=== PATIENT | male | born 1975 | race Caucasian/White ===

== ENCOUNTER 2024-07-02 20:02 | Outpatient (OUT) | payer OTHER, SELFPAY | END 2024-07-02 20:03 | disposition home or self-care (01) | LOC: SLEEP 20:02 | DX: G47.33 Obstructive sleep apnea (adult) (pediatric) (principal); F51.01 Primary insomnia | CPT/HCPCS: 95810 ==

== ENCOUNTER 2024-11-19 15:24 | Outpatient (OUT) | payer BC, MEDICAID, SELFPAY ==
--- OUTSIDE RECORDS SUMMARY | 2010-02-22 12:26 | XMS_ITS | Continuity of Care Document ---
Author Organization [facility] Address [address] [place] [address] [place] [address] Phone Care Team Providers Care Science Instructor Name Role Phone Isela Pantoja MD Unavailab le Allergies, Adverse Reactions, Alerts Substance Reaction Status Criticality Penicillins Hives Active No Information Medications Medication Instructions Dosage Effective Dates (start - stop) Status Comments Zoloft 100 mg Tab Take one tablet by mouth daily - Active Zoloft 50 mg Tab Take one tablet by mouth daily - Active PHENERGAN 25MGTABLET 1 BID prn nausea - Active Zithromax 250 mg Tab -z-pack, take as directed. - Active Effexor XR 75 mg 24 hr Cap Take two tablet by mouth daily - Active Lunesta 2 mg Tab As directed - Active Effexor XR 150 mg 24 hr Cap Take one tablet by mouth daily - Active Imitrex 100 mg Tab - - Active LUNESTA 3 mg Take one tablet by mouth daily - Active Procedures Procedure Date Office/outpatient visit,est, mod 2006 Office/outpatient visit,est, mod 2006 Office/outpatient visit,est, mod 2005 Office/outpatient visit,est, mod 2005 Office/outpatient visit,est, mod 2005 Office/outpatient visit,est, mod 2004 Office/outpatient visit,new, mod 2004 Advance Directives Directive Yes / No Effective Date File Name No Information Encounters Encounter Description Practice Location Reason(s) For Visit Diagnoses Date Provider Providers Copied on Encounter [facility], [address] [place] [address] [address], [place], [place], [id number] , tel: [phone] [facility] No Information 4-201 0 Kit Weiss. [address], [place], [place], [id number], [place]. tel:[phone] [facility], [address] [place] [address] [address], [place], [place], [id number] , [place] tel: [phone] [facility] No Information 5-200 8 Kit Weiss. [address], [place], [place], [id number], [place]. tel:[phone] Office/outpa tient visit,est, [facility], [address] [place] [address] [address], [place], [place], [address] , tel: [phone] Rand[facility] Gomez [facility] FU (chief complaint) CHEST PAIN NOSDEPRESSIONANXI ETY STATE NOSALCOHOL ABUSE-EPISODICLAT ERAL EPICONDYLITIS 4-200 7 Kit Weiss. [address], [place], [place], [id number], [place]. tel:[phone] Referring Provider: Isela Kraft, [address], [place], [address] . tel:[phone] [facility], [address] [place] [address] [address], [place], [place], [id number] , [place] tel:[phone] [facility] No Information 8-200 7 Kit Weiss. [address], [place], [place], [id number], [place]. tel:[phone] [facility], [address] [place] [address] [address], [place], [place], [address] , [place] tel:[phone] [facility] depression (chief complaint)c hest pain (chief complaint) No Information 0 4-200 7 Kit Weiss. [address], [place], [place], [address], . tel:[phone] Referring Provider: Isela Kraft, [address], [place], [address] . tel:[phone] Office/outpa tient visit,[facility], [address] [place] [address] [address], [place], [place], [address] , tel:[phone] [facility] physical exam (chief complaint)p ain (chief complaint) No Information 2-200 7 Kit Weiss. [address], [place], [place], [address], . tel:[phone] Referring Provider: Isela Kraft, [address], [place], [address] . tel:[phone] [facility], [address] [place] [address] [address], [place], [place], [address] , tel:[phone] [facility] sinus congestion (chief complaint) No Information 3200 7 Kit Weiss. [address], [place], [place], [address], . tel:[phone] Referring Provider: Isela Kraft, [address], [place], [address] . tel:[phone] Office/outpa tient visit,[facility], [address] [place] [address] [address], [place], [place], [address] , tel:[phone] Rand[facility] depression (chief complaint) DEPRESSION 7-200 6 Kit Weiss. [address], [place], [place], [address], . tel:[phone] Referring Provider: Isela Kraft, [address], [place], [address] . tel:[phone] Office/outpa tient visit,[facility], [employer] [facility], [address] [place] [address] [address], [place], [place], [address] , [place] tel: [phone] [facility] check up (chief complaint) ANXIETY STATE NOSINSOMNIA NEC 200 6 Horrigdaron Weiss. [facility] [address], [place], [address], [place]. tel:[phone] Referring Provider: Isela Kraft, [address], [place], [address] . tel:[phone] Office/outpa tient visit,[facility], [facility], [address] [place] [address] [address], [place], [place], [address] , [place] tel: [phone] Randee Gomez [facility] depression (chief complaint)h eadache (chief complaint) NE[facility]OTIC [facility] M[facility] STD 200 6 Horharman Weiss. [facility] [address], [place], [place], [address], [place]. tel:[phone] Referring Provider: Isela Kraft, [address], [place], [address] . tel:[phone] [facility], [address] [place] [address] [address], [place], [address] , [place] tel: [phone] [facility] No Information 5 Kit Weiss. [facility] [address], [place], [place], [address], [place]. tel:[phone] Office/outpa tient visit,[facility], [facility], [address] [place] [address] [address], [place], [address] , [place] tel: [phone] [facility] depression (chief complaint)s leep (chief complaint) No Information 2200 [address] Kit Weiss. [address], [place], [place], [address], . tel:[phone] Referring Provider: Isela Kraft, [address], [place], [address] . tel:[phone] Office/outpa tient visit,[facility], [address] [facility] [address], [place], [place], [address] , tel:[phone] [facility] dizziness (chief complaint)d epression (chief complaint)h /o drug use (chief complaint) No Information 2200 [address] Kit Weiss. [address], [place], [place], [address], [place]. tel:[phone] Referring Provider: Isela Kraft, [address], [place], [address] . tel:[phone] Family History Family Member Type Diagnosis Age At Onset Mother Problem (finding) hypothyroidism Payers Payer name Insurance type Covered libertarian ID Authoriza tion(s) Data Merge-Verify Information CI [id number] Social History Type Description Quantity Date Captured Comments Sex Male Smoking Status No Information Sexual Orientation Lesbian, gabriel or homosexual Chief Complaint And Reason For Visit No Information Reason For Referral Reason For Referral No Information History Of Present Illness Encounter Date Complaint History Of Prese nt Illness No Information Functional Status Date Functional Assessmen t No Information Instructions Date Instruction Additional Infor mation Prescribe medications Related to DEPRESSION Renew medications Related to DEP RESSION Review medications Related to DE PRESSION Review medication side effects R elated to DEPRESSION Order labs/studies Related to DE PRESSION Go to ER if symptoms persist or worsen Related to DEPRESSION Call if symptoms persist Related to DEPRESSION Assessments Type Assessment Date No Information Patient Care Teams Name Effective Dates (start - stop) Status Members No Information
--- OUTSIDE RECORDS SUMMARY | 2024-07-31 06:00 | XMS_ITS ---
Author Organization [facility] vices Address [address], [place] [address] Care Team Providers Care Wide Area Network Engineer Name Role Phone Natalie Ward Primary Care Provider [phone] REASON FOR VISIT 4 week Insomnia, Chronic pain Social History Sex Assigned At : Social History Observation Description Sex Assigned At Male Encounters Encounter Location Date Provider Diagnosis Main [address], [place] [id number] 07/31/2024 Natalie Ward Plan Of Treatment No Information Progress Notes * Haile PUENTESDOB: 4 (49 yo M)Acc No.[id number]:07/31/2024 Medical Note Patient: Haile TANG Provider: Ida Ward MD :1975 A ge:48 Y S ex:Male Date:07/31/2024 Address:[address] [facility] Subjective: * Chief Complaints: * 1 . 4 week Insomnia, Chronic pain. * Medical History: Objective: * Vitals: Assessment: Plan: * Treatment: * Billing Information: * Visit Code: * Procedure Codes: * Electronic signature of Adriana Ward MD on 11/19/2024 at 03:29 PM EDT Sign off status: Pending * Provider: Ida Ward MD Date: 07/31/2024 Generated for Jalen chilel/Caty/eTransmitting on: 0 11/19/2024 03:29 PM EDT
--- OUTSIDE RECORDS SUMMARY | 2024-09-04 06:00 | XMS_ITS ---
Author Organization [facility]ices Address [address], [place] [address] Care Team Providers Care 411 Directory Assistance Operator Name Role Phone Natalie Ward Primary Care Provider [phone] Olvin Kim Unavailable [phone] REASON FOR VISIT 3 month Insomnia, Chronic pain Social History Sex Assigned At : Social History Observation Description Sex Assigned At Male Encounters Encounter Location Date Provider Diagnosis Main [address] [place] [id number] 09/04/2024 Olvin Adams Plan Of Treatment No Information Progress Notes * Haile PUENTESDOB: 4 (49 yo M)Acc No.[id number]:09/04/2024 Medical Note Patient: Haile TANG Provider: Rafa Adams :1975 A ge:48 Y S ex:Male Date:09/04/2024 Address:[address] [facility] Pcp:Natalie Ward Subjective: * Chief Complaints: * 1 . 3 month Insomnia, Chronic pain. * Medical History: Objective: * Vitals: Assessment: Plan: * Treatment: * Billing Information: * Visit Code: * Procedure Codes: * Electronic signature of HARJINDER Avelar on 11/19/2024 at 03:29 PM EDT Sign off status: Pending * Provider: Rafa Adams Date: 0 09/04/2024 Generated for Maribeli ranjana/Caty/eTransmitting on: 0 11/19/2024 03:29 PM EDT
--- OUTSIDE RECORDS SUMMARY | 2024-09-15 12:45 | XMS_ITS ---
Author Organization [facility] vices Address [address], [place] [address] Care Team Providers Care Communication Manager Name Role Phone Natalie Ward Primary Care Provider REASON FOR VISIT Insomnia and Chronic Pain Social History Sex Assigned At : Social History Observation Description Sex Assigned At Male Encounters Encounter Location Date Provider Diagnosis Main [address], [place] [id number] 09/15/2024 Natalie Ward Plan Of Treatment No Information Progress Notes * PUENTESCiciurvashipatricaDOB: 4 (49 yo M)Acc No.[id number]:09/15/2024 Medical Note Patient: Haile TANG Provider: Ida Ward MD :1975 A ge:48 Y S ex:Male Date:09/15/2024 Address:[address] [facility] Subjective: * Chief Complaints: * 1 . Insomnia and Chronic Pain. * Medical History: Objective: * Vitals: Assessment: Plan: * Treatment: * Billing Information: * Visit Code: * Procedure Codes: * Electronic signature of Adriana Ward MD on 11/19/2024 at 03:29 PM EDT Sign off status: Pending * Provider: Ida Ward MD Date: 09/15/2024 Generated for Printi ranjana/Caty/eTransmitting on: 11/19/2024 03:29 PM EDT
--- OUTSIDE RECORDS SUMMARY | 2024-11-19 15:29 | XMS_ITS | Clinical Summary ---
Author Organization [facility] Address [address] [facility] [address] [facility], [address] [place] [address] Care Team Providers Care Wash House Supervisor Name Role Phone Anisha Velasquez APRN - WASH HOUSE SUPERVISOR Primary Care Provider Allergies Active Allergy Reactions Criticality Noted Date Comments Penicillins High 04/11/2024 Medications diclofenac (VOLTAREN) 75 MG EC tabletIndications:P rimary osteoarthritis of both knees Take 1 tablet by mouth 2 times daily (with meals) 180 tablet 5 Active QUEtiapine (SEROQUEL) 100 MG tabletIndications:B ipolar 1 disorder (HCC) Take 1 tablet by mouth nightly 90 tablet 5 Active Social History Tobacco Use Types Packs/Day Years Used Date Smoking Tobacco: Never Assessed [facility] Utilities Answer Date Recorded In the past 12 months has e Anim[employer], gas, oil, or water PacketSled threatened to shut off services in your home? No 04/11/2024 PHQ-2 Answer Date Recorded PHQ-9 Total Score 19 04/11/2024 Hunger Vital Sign Answer Date Recorded Within the past 12 months, y ou worried that your food would run out before you got the money to buy more. Never true 04/11/19 25 Within the past 12 months, t he food you bought just didn't last and you didn't have money to get more. Never true 04/11/2024 PRAPARE - Transportation Answer Date Re corded In the past 12 months, has l ack of transportation kept you from medical appointments or from getting medications? No 03/14 In the past 12 months, has l ack of transportation kept you from meetings, work, or from getting things needed for daily living? No 04/11/2024 Housing Stability Vital Sign Answer Sundar e Recorded In the last 12 months, was t here a time when you were not able to pay the mortgage or rent on time? No 04/11/2024 In the past 12 months, how m any times have you moved where you were living? 0 04/11/2024 At any time in the past 12 m [facility], were you homeless or living in a detention (including now)? No 04/11/2024 Food Insecurity Answer Date Recorded Within the past 12 months, y ou worried that your food would run out before you got the money to buy more. 1 04/11/2024 Within the past 12 months, t he food you bought just didn't last and you didn't have money to get more. 1 04/11/2024 Sex and Gender Information Value Date Recorded Sex Assigned at Not on file Legal Sex Male 4:23 PM EST Gender Identity Not on file Sexual Orientation Not on file Last Filed Vital Signs Vital Sign Reading Time Taken Comments Blood Pressure 118/72 04/11/2024 9:11 AM EST Pulse 85 04/11/2024 9:11 AM EST Temperature 36.3 C (97.3 F) 04/11/2024 9:11 AM EST Respiratory Rate 16 04/11/2024 9:11 AM EST Oxygen Saturation 97% 04/11/2024 9:11 AM EST Inhaled Oxygen Concentration - - Weight 123.4 kg (272 lb) 04/11/2024 9:11 AM EST Height 180.3 cm (5' 11 ) 04/11/2024 9:11 AM EST Body Mass Index 37.94 04/11/2024 9:11 AM EST Plan of Treatment Health Maintenance Due Date Last Done Comments HIV screen 1988 Hepatitis C screen 11/18/1991 DTaP/Tdap/Td vaccine (1 - Tdap) 1992 Hepatitis B vaccine (1 of 3 - 19+ 3-dose series) 1992 Diabetes screen 2008 Lipids 2013 Colonoscopy 2018 Colorectal Cancer Screen 2018 FIT/FOBT: Average risk 2018 Fecal-DNA (Cologuard): Average risk 2018 Sigmoidoscopy/CT colonography 2018 COVID-19 Vaccine (1 - 2023-2 5 season) 2023 Pneumococcal 50+ years Vaccine (1 of 1 - PCV) 11/18/2023 Shingles vaccine (1 of 2) 11/18/2023 Flu vaccine (#1) 10/10/2024 Depression Monitoring 04/11/2025 04/11/2024 , 04/11/2024 Depression Screen Discontinued 04/11/2024, 04/11/2024 Hepatitis A vaccine Aged Out No longe r eligible based on patient's age to complete this topic Hib vaccine Aged Out No longer eligi ble based on patient's age to complete this topic Meningococcal (ACWY) vaccine Aged Out No longer eligible based on patient's age to complete this topic Meningococcal B vaccine Aged Out No l onger eligible based on patient's age to complete this topic Polio vaccine Aged Out No longer elig ible based on patient's age to complete this topic Insurance Care Teams Wash House Supervisor Relationship Specialty Start Date End Date Anisha Velasquez, FURNITURE SALESPERSON - WASH HOUSE SUPERVISOR [address] [place] [address] PCP - General Family Medicine 04/11/24
--- OUTSIDE RECORDS SUMMARY | 2024-11-19 15:29 | XMS_ITS | Clinical Summary ---
Author Organization [facility] Address [address] [place] [address] Care Team Providers Care Principal Archaeologist Name Role Phone Briseida Lane NP Primary Care Provider Un available Source Comments PLEASE NOTE, if this patient is a minor, it may be UNLAWFUL to discuss sensitive information that is contained in these records (such as FAMILY PLANNING, MENTAL HEALTH or SUBSTANCE ABUSE) with the minor patient's parent or other person without the patient's specific authorization.[facility] Allergies Active Allergy Reactions Criticality Noted Date Comments Penicillins Swelling High 11/12/2015 Medications cyclobenzaprine (FLEXERIL) 5 mg tabletIndicatio ns:Chronic bilateral low back pain without sciatica Take 1 Tab by mouth 2 (two) times daily as needed for muscle spasms. 60 Tab 2 11/12/2015 Active eszopiclone (LUNESTA) 3 mg tabIndications: Primary insomnia Take 1 Tab by mouth nightly at bedtime. 30 Tab 0 12/02/2015 Active atomoxetine (STRATTERA) 10 mg capsuleIndicati ons:Anxiety Take 1 Cap by mouth once daily. 30 Cap 2 12/10/2015 Active Active Problems Problem Noted Date Diagnosed Date Furuncle 08/18/2015 Anxiety 07/14/2015 Chronic low back pain 07/14/2015 Insomnia 07/14/2015 Social History Tobacco Use Types Packs/Day Years Used Date Smoking Tobacco: Never Smokeless Tobacco: Never Alcohol Use Standard Drinks/Week Comments No 0 (1 standard drink = 0.6 oz pur e alcohol) Social Connections Answer Date Recorded Social Connections and Isolation 0 11/03/2018 Financial Resource Strain Answer Date R ecorded Financial Resource Strain 0 2018 Stress Answer Date Recorded Stress 0 11/03/2018 Physical Activity Answer Date Recorded Physical Activity 0 11/03/2018 Food Insecurity Answer Date Recorded Food 0 11/03/2018 Transportation Needs Answer Date Record ed Transportation 0 11/03/2018 Housing Stability Answer Date Recorded Housing 0 11/03/2018 Safety and Environment Answer Date Dg rded Safety 0 11/03/2018 Utilities Answer Date Recorded Utilities 0 11/03/2018 Employment Answer Date Recorded Employment 0 11/03/2018 Sex and Gender Information Value Date Recorded Sex Assigned at Not on file Legal Sex Male 7:50 AM PDT Gender Identity Not on file Sexual Orientation Not on file Last Filed Vital Signs Vital Sign Reading Time Taken Comments Blood Pressure 114/67 12/10/2015 9:21 AM EDT Pulse 65 12/10/2015 9:21 AM EDT Temperature 36.1 C (97 F) 12/10/2015 9:21 AM EDT Respiratory Rate 22 12/10/2015 9:21 AM EDT Oxygen Saturation - - Inhaled Oxygen Concentration - - Weight 99.2 kg (218 lb 9.6 oz) 12/10/2015 9:21 A M EDT Height 179 cm (5' 10.47 ) 12/10/2015 9:21 AM EDT Body Mass Index 30.95 12/10/2015 9:21 AM EDT Plan of Treatment Not on file Insurance [employer] [employer] Care Teams Principal Archaeologist Relationship Specialty Start Date End Date Briseida Lane NP PCP - General Family Medicine, OUTCOMES MANAGER 06/16/15
== END 2024-11-19 15:25 | disposition home or self-care (01) ==
PROVIDERS: PCP Nurse Practitioner Family; Visit Provider Nurse Practitioner Family
DX: N52.9 Male erectile dysfunction, unspecified (principal)
CPT/HCPCS: 36415; 84402; 84403

== ENCOUNTER 2025-02-23 16:02 | Outpatient (OUT) | payer BC, MEDICAID, SELFPAY ==
[2025-02-23 16:35] LABS: Hematocrit 45.6 % (42.0-54.0); Hemoglobin 15.9 g/dL (14.0-18.0); Immature Granulocytes Abs Auto 0.02 10^3/uL (0.00-0.03); Immature Granulocytes Pct Auto 0.2 % (0.0-0.5); Lymphocytes Absolute Auto 2.0 10^3/uL (1.2-3.8); Mean Corpuscular HGB Conc 34.9 g/dL (29.9-35.2); Mean Corpuscular Hemoglobin 30.2 pg (25.9-34.0); Mean Corpuscular Volume 86.5 fL (80.0-94.0); Platelet Count 235 10^3/uL (150-450); Red Blood Count 5.27 10^6/uL (4.70-6.10); White Blood Count 9.5 10^3/uL (4.0-11.0)
[2025-02-23 16:51] LABS: Alanine Aminotransferase 40 U/L (16-63); Albumin Globulin Ratio 1.0; Albumin Level 3.5 g/dL (3.4-5.0); Alkaline Phosphatase 140 U/L (46-116); Anion Gap 11.6; Aspartate Amino Transferase 19 U/L (15-37); Blood Urea Nitrogen 9.0 mg/dL (7.0-18.0); Calcium 8.8 mg/dL (8.5-10.1); Carbon Dioxide 29.2 mmol/L (21.0-32.0); Chloride 104 mmol/L (98-107); Cholesterol 242 mg/dL (<=200); Estimated GFR (African America >60 (>=60 mL/min/1.73m^2); Estimated GFR (Non-African Ame >60 (>=60 mL/min/1.73m^2); Globulin 3.4 g/dL; Glucose 96 mg/dL (74-106); HDL Cholesterol 52 mg/dL (40-60); Potassium 3.8 mmol/L (3.5-5.1); Sodium 141 mmol/L (136-145); Total Protein 6.9 g/dL (6.4-8.2); Triglycerides 109 mg/dL (<=150); VLDL CHOLESTEROL 21.8 mg/dL
== END 2025-02-23 16:03 | disposition home or self-care (01) ==
PROVIDERS: PCP Nurse Practitioner Family; Visit Provider Nurse Practitioner Family
DX: Z12.5 Encounter for screening for malignant neoplasm of prostate (principal); Z13.228 Encounter for screening for other metabolic disorders; Z13.220 Encounter for screening for lipoid disorders; Z13.0 Encounter for screening for diseases of the blood and blood-forming organs and certain disorders involving the immune mechanism
CPT/HCPCS: 36415; 80053; 80061; 85025; G0103